=== PATIENT | female | born 1985 | race Caucasian/White ===

== ENCOUNTER 2017-01-26 18:21 | Emergency (ER) | payer MEDICAID, OTHER, SELFPAY ==
[~2017-01-26] VITALS: Ht 175.3 cm; Wt 71.4 kg
[2017-01-26 18:23] VITALS: BP 116/75
[2017-01-26 19:01] LABS: HCG UR LOT HCG7030192
[2017-01-26 19:07] LABS: HCG UR OBC PASS
== END 2017-01-26 21:27 | disposition home or self-care (01) ==
LOC: ED 21:21
DX: A60.00 Herpesviral infection of urogenital system, unspecified (principal)
CPT/HCPCS: 81003; 81025; 99284

== ENCOUNTER 2017-10-29 17:28 | Emergency (ER) | payer MEDICAID ==
[~2017-10-29] VITALS: Ht 175.3 cm; Wt 97.8 kg
[2017-10-29] MEDS ORDERED: PHENAZOPYRIDINE 200 MG TABLET ONE (18:09)
[2017-10-29 18:17] LABS: HCG UR SG 1.025 (1.003-1.030); MICROSCOPIC AUTO
[2017-10-29 18:18] LABS: CULTURE INDICATED? YES
[2017-10-29] MEDS ORDERED: PHENAZOPYRIDINE 200 MG TABLET PO ONE (18:30)
[2017-10-29 18:53] VITALS: BP 108/64
== END 2017-10-29 19:02 | disposition home or self-care (01) ==
LOC: ED 18:56
DX: N30.01 Acute cystitis with hematuria (principal); J02.8 Acute pharyngitis due to other specified organisms
CPT/HCPCS: 81001; 81025; 87077; 87086; 87186; 99284

== ENCOUNTER 2019-11-24 22:22 | Emergency (ER) | payer MEDICAID ==
[~2019-11-24] VITALS: Ht 175.3 cm; Wt 75.4 kg
[2019-11-24] MEDS ORDERED: ONDANSETRON ODT 8 MG ONE (22:48)
--- NOTE | 2019-11-24 22:51 | NUR ---
PT HERE FOR VB X 21 DAYS. VSS. PT HAS HX OF METH USE. PT ALSO COMPLAINING OF ABD PAIN AND NAUSEA. PT MEDICATED FOR NAUSEA AND PLACED ON PULSE OX AND BP MONITORING. CALL LIGHT IN REACH.
[2019-11-24] MEDS ORDERED: ONDANSETRON ODT 4 MG PO ONE (23:00)
[2019-11-24 23:16] LABS: BASOPHILS # (AUTO) 0.08 x10^3/uL (0-0.1); BASOPHILS % (AUTO) 1 % (0-1); EOSINOPHILS # (AUTO) 0.23 x10^3/uL (0-0.4); EOSINOPHILS % (AUTO) 2 % (1-7); LYMPHOCYTES # (AUTO) 3.47 x10^3/uL (1-3.4); LYMPHOCYTES % (AUTO) 29 % (22-44); MD NO; MEAN CORPUSCULAR HEMOGLOBIN 30.4 pg (27.0-34.8); MEAN CORPUSCULAR HGB CONC 33.4 g/dL (32.4-35.8); MONOCYTES % (AUTO) 9 % (2-9); NEUTROPHILS # (AUTO) 6.95 x10^3/uL (1.8-6.8); NEUTROPHILS % (AUTO) 59 % (42-75); PLATELET COUNT 337 x10^3/uL (130-400); RED BLOOD COUNT 4.59 x10^6/uL (3.82-5.3); RED CELL DISTRIBUTION WIDTH 13.4 % (9.6-15.2)
[2019-11-24 23:28] LABS: ALANINE AMINOTRANSFERASE 28 U/L (12-78); ALBUMIN 3.2 g/dL (3.4-5.0); ANION GAP 9 mmol/L (5-15); CALCIUM 8.1 mg/dL (8.5-10.1); CHLORIDE 108 mmol/L (98-107); CREATININE 0.69 mg/dL (0.55-1.02)
[2019-11-24 23:33] LABS: ALKALINE PHOSPHATASE 108 U/L (45-117); BILIRUBIN,TOTAL 0.3 mg/dL (0.2-1.0); TOTAL PROTEIN 7.1 g/dL (6.4-8.2)
--- NOTE | 2019-11-24 23:50 | NUR ---
PT BACK FROM US. PT GIVEN UA CUP FOR SAMPLE.
[2019-11-25 00:49] LABS: MICROSCOPIC INDICATED
[2019-11-25 01:00] VITALS: BP 110/73
--- NOTE | 2019-11-25 01:46 | NUR ---
PT VERBALIZED UNDERSTANDING OF DISCHARGE INSTRUCTIONS. PT SAID SHE WOULD GET DRESSED AND GO BUT CONTINUALLY FALLS BACK TO SLEEP. SECURITY CALLED TO ASSIST PT WITH LEAVING
== END 2019-11-25 01:51 | disposition home or self-care (01) ==
LOC: ED 23:00
DX: N30.01 Acute cystitis with hematuria (principal); N93.8 Other specified abnormal uterine and vaginal bleeding; F15.129 Other stimulant abuse with intoxication, unspecified; Z72.9 Problem related to lifestyle, unspecified
CPT/HCPCS: 36415; 76705; 76830; 80053; 81001; 84703; 85025; 87086; 99285; Q0162